=== PATIENT | male | born 1995 | race Caucasian/White ===

== ENCOUNTER 2018-12-07 13:55 | Emergency (ER) | payer OTHER, MEDICAID, SELFPAY ==
[2018-12-07 14:16] VITALS: BP 132/89; PULSE 91; RESP 14; TEMP 36.7; O2SAT 97
--- NOTE | 2018-12-07 19:04 | ED.SKABFB ---
HPI - Skin/Abscess/Foreign Bdy <VIVIAN Venegas - Last Filed: 12/07/18 22:02> General Chief complaint: Skin/Abscess/Foreign Body Stated complaint: Rash on bottom Time Seen by Provider: 12/07/18 18:44 Source: patient Mode of arrival: ambulatory Limitations: no limitations History of Present Illness HPI narrative: The patient is a 23-year-old nonsmoker male who does not take any medications who presents with a chief complaint of a rash by his buttocks. He states it started a few days ago, denies any new exposures. He denies any fevers nausea vomiting diarrhea. He states he has tried to keep it clean, and washed it with soap and water. He denies any chest pain, shortness of breath, rashes anywhere else. Related Data Previous Rx's Medication Instructions Recorded nystatin 1 applictn TOP TID 14 Days #30 gram 12/07/18 sulfamethoxazole-trimethoprim 1 tab PO BID #20 tab 12/07/18 [Bactrim DS] Allergies Allergy/AdvReac Type Severity Reaction Status Date / Time No Known Drug Allergies Allergy Verified 12/07/18 14:19 Review of Systems <VIVIAN Venegas - Last Filed: 12/07/18 22:02> Review of Systems GENERAL: Denies chills, fatigue, malaise, fever, sweats. HEENT: Denies sinus pain, ear pain, sore throat, difficulty swallowing, dizziness. RESPIRATORY: Denies dyspnea, cough, wheezing, hemoptysis, sputum. CARDIOVASCULAR: Denies chest pain, palpitations, orthopnea, edema, GASTROINTESTINAL: Denies nausea, vomiting, abdominal pain, diarrhea, constipation, melena. : Denies dysuria, frequency, incontinence, hematuria, urinary retention. MUSCULOSKELETAL: denies weakness, joint pain, or bony pain SKIN: See HPI NEUROLOGIC: Denies weakness, headache, numbness, change in speech, confusion, seizures, incoordination. PSYCHIATRIC: No concerning psychosocial issues. 12 point review of systems is negative except for those stated above PFSH <VIVIAN Venegas - Last Filed: 12/07/18 22:02> Social History Smoking Status: Never smoker Social History Smoking Status: Never smoker Exam <VIVIAN Venegas - Last Filed: 12/07/18 22:02> Narrative Exam Narrative: GENERAL: This is a well-nourished, well-developed patient, in no acute distress HEAD: Atraumatic. Normocephalic. No temporal or scalp tenderness. EYES: Pupils equal round and reactive. Extraocular motions intact. No scleral icterus. No injection or drainage. ENT: Nose without bleeding, purulent drainage or septal hematoma. Throat without erythema, tonsillar hypertrophy or exudate. Uvula midline. Airway patent. NECK: Trachea midline. No JVD or lymphadenopathy. Supple, nontender, no meningeal signs. CARDIOVASCULAR: Regular rate and rhythm RESPIRATORY: No cough. No increased respiratory effort. EXTREMITIES: No clubbing, cyanosis, or edema. No joint tenderness, effusion, or edema noted. BACK: Nontender without deformity or crepitance. No flank tenderness. NEURO: AOx3. SKIN: 10 cm across of erythema across the gluteal cleft, with 8 cm height. Chapped skin, honey-colored crusted lesions noted. no spreading erythema outside rash. noted satellite lesion. Initial Vital Signs Initial Vital Signs: Vital Signs Temperature 98.1 F 12/07/18 14:16 Pulse Rate 91 H 12/07/18 14:16 Respiratory Rate 14 12/07/18 14:16 Blood Pressure 132/89 12/07/18 14:16 Pulse Oximetry 97 12/07/18 14:16 <Zackery Gonzales MD - Last Filed: 12/08/18 02:00> Initial Vital Signs Initial Vital Signs: Vital Signs Temperature 98.1 F 12/07/18 14:16 Pulse Rate 91 H 12/07/18 14:16 Respiratory Rate 14 12/07/18 14:16 Blood Pressure 132/89 12/07/18 14:16 Pulse Oximetry 97 12/07/18 14:16 Course <JOSE JUAN Venegas- - Last Filed: 12/07/18 22:02> Vital Signs - 8 hr 12/07/18 19:18 Pulse Rate 88 Respiratory Rate 12 Blood Pressure 121/84 Pulse Oximetry 99 <Zackery Gonzales MD - Last Filed: 12/08/18 02:00> Vital Signs - 8 hr 12/07/18 19:18 Pulse Rate 88 Respiratory Rate 12 Blood Pressure 121/84 Pulse Oximetry 99 MDM - Skin/Abscess/Foreign Bdy <JOSE JUAN Venegas-BC - Last Filed: 12/07/18 22:02> [facility] Narrative Medical decision making narrative: The patient's exam is indicative of a candidiasis rash, especially given the location in the gluteal cleft. However it appears to have an infective component similar to the type go given the honey-colored crust. This I will start him on nystatin as well as Bactrim. Discussed following up with primary care provider as well as return precautions of fever nausea vomiting diarrhea. No questions or concerns. Patient states understanding and is in accordance with plan of care. Discharge Plan Departure Patient Disposition: Home Clinical Impression: Impetigo, Hoa infection Discharge Date/Time: 12/07/18 19:19 Interventions: ED Discharge Assessment Last Done: 12/07/18 19:18 Instructions: DI for Impetigo, DI for Hoa Diaper Rash Activity Restrictions/Additional Instructions: It appears that you had a fungal rash, that became infected. Thus I am giving you an antifungal cream as well as an oral antibiotic. Monitor for fevers, vomiting diarrhea or spreading of the rash. please follow up with primary care provider in a few days. You can contact the health learning support resource room teacher at [phone] to help arrange a primary care provider. Please follow up with primary care provider. Come back to emergency department for any acute concerns such as chest pain shortness of breath, concern of heart attack or stroke. Prescriptions: New nystatin 100,000 unit/gram ointment 1 applictn TOP TID 14 Days Qty: 30 RF: 0 sulfamethoxazole-trimethoprim [Bactrim DS] 800-160 mg tablet 1 tab PO BID Qty: 20 RF: 0 <Zackery Gonzales MD - Last Filed: 12/08/18 02:00> Cosign ED Attending [employer] Attestation: I was present in the ER at the time this patient's care. I was available for consultation or to see the patient directly if required. I agree with the evaluation, assessment and treatment plan.
[2018-12-07 19:18] VITALS: BP 121/84; PULSE 88; RESP 12; O2SAT 99
== END 2018-12-07 19:19 | disposition home or self-care (01) ==
PROVIDERS: Emergency Provider Nurse Practitioner Family
DX: L01.00 Impetigo, unspecified (principal); B37.9 Candidiasis, unspecified
CPT/HCPCS: 99282; 99283

== ENCOUNTER 2019-01-10 10:17 | Emergency (ER) | payer OTHER, MEDICAID, SELFPAY ==
[2019-01-10 10:25] VITALS: BP 138/98; PULSE 75; RESP 18; TEMP 36.9; O2SAT 98; BMI 28.8
--- NOTE | 2019-01-10 10:54 | ED.SKABFB ---
HPI - Skin/Abscess/Foreign Bdy General Chief complaint: Skin/Abscess/Foreign Body Stated complaint: Rash on lower back, keeps coming back Time Seen by Provider: 01/10/19 10:46 Source: patient and old records reviewed Mode of arrival: ambulatory Limitations: no limitations History of Present Illness HPI narrative: Patient is a 23-year-old male who presents for current rash on his buttocks. He noticed it starting yesterday. He really does not feel it it does not itch and less if he moves funny. He has not had any fever or chills. He was actually diagnosed with impetigo all 1 month ago and was given Bactrim and nystatin he says it went away. complaint: rash Onset (ago): day(s) Location: buttocks Severity: moderate Related Data Previous Rx's Medication Instructions Recorded sulfamethoxazole-trimethoprim 1 tab PO BID #20 tab 12/07/18 [Bactrim DS] sulfamethoxazole-trimethoprim 1 tab PO BID #28 tab 01/10/19 [Bactrim DS] Allergies Allergy/AdvReac Type Severity Reaction Status Date / Time No Known Drug Allergies Allergy Verified 01/10/19 10:29 Review of Systems Review of Systems GENERAL: Denies chills, fatigue, malaise, fever, sweats, travel HEENT: Denies sinus pain, ear pain, sore throat, difficulty swallowing, neck pain RESPIRATORY: Denies dyspnea, cough, wheezing, hemoptysis, sputum. CARDIOVASCULAR: Denies chest pain, palpitations, orthopnea, edema GASTROINTESTINAL: Denies nausea, vomiting, abdominal pain, diarrhea, constipation, melena. : Denies dysuria, frequency, incontinence, hematuria, urinary retention, flank pain. MUSCULOSKELETAL: Denies weakness, joint pain, or bony pain SKIN: See HPI NEUROLOGIC: Denies weakness, dizziness, headache, numbness, change in speech, confusion PSYCHIATRIC: No concerning psychosocial issues. 12 point review of systems is negative except for those stated above and HPI [facility] Medical History Patient denies significant medical history (Acute) Social History Smoking Status: Never smoker Social History Smoking Status: Never smoker Exam Initial Vital Signs Initial Vital Signs: Vital Signs Temperature 98.4 F 01/10/19 10:25 Pulse Rate 75 01/10/19 10:25 Respiratory Rate 18 01/10/19 10:25 Blood Pressure 138/98 H 01/10/19 10:25 Pulse Oximetry 98 01/10/19 10:25 GENERAL: Well-appearing, well-nourished and in no acute distress. CARDIOVASCULAR: peripheral pulses in tact, cap refill <2 sec RESPIRATORY: No respiratory distress, speaks in full sentences without difficulty EXTREMITIES: Normal range of motion, no clubbing or edema. Neurovascularly intact NEUROLOGICAL: Cranial nerves II through XII grossly intact. Normal gait and speech. SKIN: Buttocks have some satellite areas but right over the gluteal cleft there is shaft honey-colored crusted lesions no surrounding erythema. Course Vital Signs - 8 hr 01/10/19 10:25 Temperature 98.4 F Pulse Rate 75 Respiratory Rate 18 Blood Pressure 138/98 H Pulse Oximetry 98 MDM - Skin/Abscess/Foreign Bdy MDM Narrative Medical decision making narrative: Rash does look like impetigo was crusted lesions. Previously improved Bactrim. Will give a longer course of Bactrim this time. He has some nystatin cream left over last time which she has only been using intermittently. Discharge Plan Departure Patient Disposition: Home Clinical Impression: Impetigo Discharge Date/Time: 01/10/19 11:21 Interventions: ED Discharge Assessment Last Done: 01/10/19 11:20 Instructions: Impetigo Activity Restrictions/Additional Instructions: *You have been diagnosed with impetigo *What to do: You may need dermatology consultation. I strongly recommend that you get a primary provider *Continue to take medications as directed Bactrim 1 tablet twice a day for 14 days *Follow up with your primary care provider in 2-3 days -call [phone] to help with primary care provider *Return to ER if you should have fever, redness or any new, worsening or concerning symptoms Prescriptions: New sulfamethoxazole-trimethoprim [Bactrim DS] 800-160 mg tablet 1 tab PO BID Qty: 28 RF: 0 No Action sulfamethoxazole-trimethoprim [Bactrim DS] 800-160 mg tablet 1 tab PO BID Qty: 20 RF: 0 Referrals: [facility] [Outside]
--- NOTE | 2019-01-10 11:01 | ED_ITS ---
HPI - Skin/Abscess/Foreign Bdy General Chief complaint: Skin/Abscess/Foreign Body Stated complaint: Rash on lower back, keeps coming back Time Seen by Provider: 01/10/19 10:46 Source: patient and old records reviewed Mode of arrival: ambulatory Limitations: no limitations History of Present Illness HPI narrative: Patient is a 23-year-old male who presents for current rash on his buttocks. He noticed it starting yesterday. He really does not feel it it does not itch and less if he moves funny. He has not had any fever or chills. He was actually diagnosed with impetigo all 1 month ago and was given Bactrim a nd nystatin he says it went away. complaint: rash Onset (ago): day(s) Location: buttocks Severity: moderate Related Data Previous Rx's Medication Instructions Recorded sulfamethoxazole-trimethoprim 1 tab PO BID #20 tab 12/07/18 [Bactrim DS] sulfamethoxazole-trimethoprim 1 tab PO BID #28 tab 01/10/19 [Bactrim DS] Allergies Allergy/AdvReac Type Severity Reaction Status Date / Time No Known Drug Allergies Allergy Verified 01/10/19 10:29 Review of Systems Review of Systems GENERAL: Denies chills, fatigue, malaise, fever, sweats, travel HEENT: Denies sinus pain, ear pain, sore throat, difficulty swallowing, neck pain RESPIRATORY: Denies dyspnea, cough, wheezing, hemoptysis, sputum. CARDIOVASCULAR: Denies chest pain, palpitations, orthopnea, edema GASTROINTESTINAL: Denies nausea, vomiting, abdominal pain, diarrhea, constipation, melena. : Denies dysuria, frequency, incontinence, hematuria, urinary retention, flank pain. MUSCULOSKELETAL: Denies weakness, joint pain, or bony pain SKIN: See HPI NEUROLOGIC: Denies weakness, dizziness, headache, numbness, change in speech, confusion PSYCHIATRIC: No concerning psychosocial issues. 12 point review of systems is negative except for those stated above and HPI [facility] [place] Medical History Patient denies significant medical history (Acute) Social History Smoking Status: Never smoker Social History Smoking Status: Never smoker Exam Initial Vital Signs Initial Vital Signs: Vital Signs Temperature 98.4 F 01/10/19 10:25 Pulse Rate 75 01/10/19 10:25 Respiratory Rate 18 01/10/19 10:25 Blood Pressure 138/98 H 01/10/19 10:25 Pulse Oximetry 98 01/10/19 10:25 GENERAL: Well-appearing, well-nourished and in no acute distress. CARDIOVASCULAR: peripheral pulses in tact, cap refill <2 sec RESPIRATORY: No respiratory distress, speaks in full sentences without difficulty EXTREMITIES: Normal range of motion, no clubbing or edema. Neurovascularly intact NEUROLOGICAL: Cranial nerves II through XII grossly intact. Normal gait and speech. SKIN: Buttocks have some satellite areas but right over the gluteal cleft there is shaft honey-colored crusted lesions no surrounding erythema. Course Vital Signs - 8 hr 01/10/19 10:25 Temperature 98.4 F Pulse Rate 75 Respiratory Rate 18 Blood Pressure 138/98 H Pulse Oximetry 98 MDM - Skin/Abscess/Foreign Bdy MDM Narrative Medical decision making narrative: Rash does look like impetigo was crusted lesions. Previously improved Bactrim. Will give a longer course of Bactrim this time. He has some nystatin cream left over last time which she has only been using intermittently. Discharge Plan Departure Patient Disposition: Home Clinical Impression: Impetigo Discharge Date/Time: 01/10/19 11:21 Interventions: ED Discharge Assessment Last Done: 01/10/19 11:20 Instructions: Impetigo Activity Restrictions/Additional Instructions: *You have been diagnosed with impetigo *What to do: You may need dermatology consultation. I strongly recommend that you get a primary provider *Continue to take medications as directed Bactrim 1 tablet twice a day for 14 days *Follow up with your primary care provider in 2-3 days -call [phone] to help with primary care provider *Return to ER if you should have fever, redness or any new, worsening or concerning symptoms Prescriptions: New sulfamethoxazole-trimethoprim [Bactrim DS] 800-160 mg tablet 1 tab PO BID Qty: 28 RF: 0 No Action sulfamethoxazole-trimethoprim [Bactrim DS] 800-160 mg tablet 1 tab PO BID Qty: 20 RF: 0 Referrals: [facility] [Outside]
--- NOTE | 2019-01-10 11:19 | PC.NURSE ---
lumbar area with rash, red with dry crusty drainage. pt has been taking antibiotic for 2 weeks, getting better then flared up, pt didnt have primary md. also has a rash on right side of face.
== END 2019-01-10 11:21 | disposition home or self-care (01) ==
PROVIDERS: Emergency Provider Emergency Medicine
DX: L01.00 Impetigo, unspecified (principal)
CPT/HCPCS: 99283